=== PATIENT | female | born 1985 | race Caucasian/White ===

== ENCOUNTER → 2019-09-22 14:50 | Outpatient (CLI) | payer OTHER, SELFPAY ==
[2019-09-22 16:01] LABS: Free T4, Direct Thyroxine 0.94 ng/dL (0.78-2.19)
[2019-09-22 16:15] LABS: Thyroid Stimulating Hormone 2.21 uIU/mL (0.47-4.68)
== END ==
PROVIDERS: Referring Provider Obstetrics & Gynecology; Visit Provider Obstetrics & Gynecology
DX: E03.9 Hypothyroidism, unspecified (principal)
CPT/HCPCS: 36415; 84439; 84443

== ENCOUNTER 2020-03-07 11:15 | Outpatient (RCR) | payer OTHER, SELFPAY ==
--- NOTE | 2020-01-05 17:31 | PT.OIE ---
Current Diagnoses Other specified disorders of muscle (01/04/20) Cystocele, unspecified (01/04/20) Rectocele (01/04/20) Pelvic muscle wasting (01/04/20) Past Medical History (Last Updated 11/30/19 @ 18:59 by Jocelyn Carvalho MD) H/O concussion (Acute) Hypothyroidism (Chronic ~2018) Kyphosis (Acute) Lordosis (Acute) Pelvic relaxation (Acute) Reactive depression (situational) (Acute ~2003) Past Surgical History (Last Updated 09/21/19 @ 20:29 by Kia Porras) Anesthesia (Resolved) Clavicle fracture (Acute ~2007) History of tonsillectomy (Acute ~2006) Visit Care Team Role Provider Type Jocelyn Carvalho MD Attending Provider Physician Family Provider Primary Care Provider Referring Provider Specialty: TERRAZZO POLISHER HELPER Address: [address] [place] [address] Email: [email or web address] Physical Therapy Initial Evaluation PT-OP-A Visit Information Start: 01/04/20 14:30 Freq: Status: Active Protocol: Document 01/04/20 14:30 [facility] (Rec: 01/04/20 14:36 [facility] [id number]) Out-Patient Physical Therapy Visit Information Visit Information Visit Type Initial Evaluation Visit Start Time 12:45 Visit Stop Time 13:30 Total Visit Minutes 45 Visit Number 1 Evaluation Information Evaluation Date 01/04/20 PT-OP-B Current Condition Start: 01/04/20 14:30 Freq: Status: Active Protocol: Document 01/04/20 14:30 [facility] (Rec: 01/04/20 14:36 [facility] [id number]) Current Condition History of Current Condition Onset Date 3 months ago with vaginal delivery Current Complaints cystocele and rectocele with bulge in the vaginal wall, pelvic pressure History of Current Condition Lasha is a 34 year old female 1 para 1 who delivered her baby August 13 2019. She had a 36 hour labor with pitocin and vaccumm assisted vaginal delivery. Lasha reports 3 months after childbirth she noticed a bulge in her vagina when showering. She was seen by Dr. Carvalho and sent to PT for pelvic floor strengthening for pelvic relaxation including 2nd-3rd degree cystocele, 2nd degree rectocele, 1st degree uterine prolapse. Treatment Goals Patient/Caregiver Goals Treatment goals include improving pelvic floor strength to decrease pelvic organ prolapse and preventing any further prolapse. PT-OP-I Pelvic Floor Start: 01/04/20 14:30 Freq: Status: Active Protocol: Document 01/04/20 14:38 [facility] (Rec: 01/04/20 14:41 [facility] [id number]) Pelvic Floor Assessment Urine Pelvic Floor Surgery Vaccumm assisted delivery Other Urinary Symptoms pelvic pressure and heavyness after long walks or at the end of the day Bowel Other Bowel Symptoms Feeling of rectal prolapse Bowel Movement Frequency daily bowel movements without straining Pelvic Clock Pelvic Clock 3-6 Atrophy Pelvic Clock 6-9 Atrophy Prolapse Uterine Prolapse Grade 1 Cystocele Grade 2 Rectocele Grade 2 Perineal Descent Resting Present Bearing Present SEMG (uV) Baseline 2.3 10 Second Contraction 7.0 Recruitment Pattern Fair Relaxation Good Holding Fair Stability of Hold Fair SEMG Stability of Rest Good Contraction Ability Voluntary Contraction Weak Voluntary Relaxation Weak Manual Muscle Testing Left 2 Manual Muscle Testing Right 2 Manual Muscle Testing Anterior 2 Manual Muscle Testing Posterior 1 Muscle Endurance (Seconds) 7 PT-OP-Q Treatments Start: 01/04/20 14:30 Freq: Status: Active Protocol: Document 01/04/20 17:28 [facility] (Rec: 01/05/20 17:29 [facility] [id number]) Therapeutic Exercises Supine Exercises 1 Supine Exercise Name pelvic floor 5 second hold time and 10 second relax Side bilateral Reps/Minutes 1-2 sets of 10 reps per day PT-OP-T Assessment and Plan Start: 01/04/20 14:30 Freq: Status: Active Protocol: Document 01/04/20 15:47 [facility] (Rec: 01/05/20 16:00 [facility] [id number]) Physical Therapy Assessment Rehab Potential Rehabilitation Potential Excellent Evaluation Complexity Number of Personal Factors/Comorbidities 0 Number of Body Systems Impaired 1-2 Clinical Presentation at Evaluation Stable Impairments Impairments Activity Tolerance,Pain,Soft Tissue Mobility,Strength Other Impairments pelvic organ prolapse, pelvic heaviness and pressure after long walks Goals 4 Impairment Decreased endurance of the levator ani musculature Short Term Goal (STG) Lasha is able to sustain a pelvic floor contraction for 10 seconds in supine STG Duration 5 weeks [employer] Alarm Superintendent Goal (LTG) Lasha is able to sustain a pelvic floor contraction in standing x 10 seconds for improved support of her pelvic organs. Three Impairment Pelvic organ prolapse, c/o pelvic heavyness especially after a long walk Shelter Goal (LTG) With improved strength of the pelvic floor and education on decreasing downward pressure on the pelvic floor Lasha is able to prevent further prolapse and decrease symptoms of pelvic pressure and heavyness. LTG Duration 8 weeks Two Impairment Decreased strength of the pelvicfloor s/p forceps assisted vaginal delivery [place] Alarm Superintendent Goal (LTG) Lasha is able to improve the strength of her levator ani for improved support of her pelvic organs to 3/5 or better on MMT LTG Duration 8 weeks One Impairment Perineal gapping and decreased ability to draw the perineal body upward/in Short Term Goal (STG) Lasha has improved ability to contract at the perineal body and lift the perineum upward STG Duration 4 weeks Shelter Goal (LTG) There is decreased perineal gapping and improved support to the pelvic floor LTG Duration 8 weeks Assessment Summary Assessment Lasha is a 34 year old female 1 para 1 who is 5 months from a vaccumm assisted vaginal delivery. She reports at 3 months she began noticing a bulge from her vagina while she was in the shower. Lasha notes she rarely has any urinary leakage and has a daily bowel movement. She is able to have intercourse but it is not comfortable at this point. She does complain of increased pelvic pressure after long walks or at the end of the day . With pelvic floor examination today Lasha presents with perineal gapping and decreased ability for the perineal body to elevate with pelvic floor contraction. This downward tension may be contributing to pelvic organ prolapse. Lasha is weak with MMT of the levator ani. Her anterior and lateral corbett tests 2/5 MMT and posterior wall is a 1/5. Lasha tends to substitute with her upper abdominals when attempting a pelvic floor contraction. She notes overall a decreased sensation to palpation in her pelvic floor and it is very difficult for her to isolate her pelvic floor. There is a 2nd degree rectal prolapse and cystocele and 1st degree uterine prolapse noted. EMG biofeedback was used to day to provide neuro re-education for pelvic floor contraction and beginning endurance training. Lasha was educated on lifting up from the perineum. She tolerated treatment well today and is a good candidate for PT. PT will include neuromuscular re- education, endurance training of the levator ani, NMES for improved sensation of the pelvic floor, education on decompression exercises for the pelvic floor. Physical Therapy Plan Frequency and Duration Frequency of Treatment 1x/Week Duration of Treatment 8 Plan of Care Start Date 01/04/20 Plan of Care End Date 02/29/20 Therapeutic Interventions Therapeutic Interventions Home Exercise Program,Manual Therapy,Neuromuscular Re- education,Patient/Caregiver Education,Self-Care/Home Management,Soft Tissue Mobilization,Therapeutic Exercises Modalities Biofeedback Next Visit Focus/Plan Next Note Type Treatment Note Next Visit Plan Continue with EMG biofeedback for pelvic floor muscle strength, NMES for improved sensation of pelvic floor contractions, perineal body mobilizations
--- NOTE | 2020-01-05 17:31 | PT.OPPOC ---
Physical, Occupational & Speech Therapy At [facility] Current Diagnoses Other specified disorders of muscle (01/04/20) Cystocele, unspecified (01/04/20) Rectocele (01/04/20) Pelvic muscle wasting (01/04/20) Visit Care Team Role Provider Type Jocelyn Carvalho MD Attending Provider Physician Family Provider Primary Care Provider Referring Provider Specialty: TECHNICAL SALES ASSOCIATE Address: [address] [place] [address], [id number] Email: [email or web address] Plan Of Care PT-OP-T Assessment and Plan Start: 01/04/20 14:30 Freq: Status: Active Protocol: Document 01/04/20 15:47 [facility] (Rec: 01/05/20 16:00 [facility] [email or web address]) Physical Therapy Assessment Rehab Potential Rehabilitation Potential Excellent Evaluation Complexity Number of Personal Factors/Comorbidities 0 Number of Body Systems Impaired 1-2 Clinical Presentation at Evaluation Stable Impairments Impairments Activity Tolerance,Pain,Soft Tissue Mobility,Strength Other Impairments pelvic organ prolapse, pelvic heaviness and pressure after long walks Goals 4 Impairment Decreased endurance of the levator ani musculature Short Term Goal (STG) Lasha is able to sustain a pelvic floor contraction for 10 seconds in supine STG Duration 5 weeks Halfway Goal (LTG) Lasha is able to sustain a pelvic floor contraction in standing x 10 seconds for improved support of her pelvic organs. Three Impairment Pelvic organ prolapse, c/o pelvic heaviness especially after a long walk Halfway Goal (LTG) With improved strength of the pelvic floor and education on decreasing downward pressure on the pelvic floor Lasha is able to prevent further prolapse and decrease symptoms of pelvic pressure and heaviness. LTG Duration 8 weeks Two Impairment Decreased strength of the pelvic floor s/p forceps assisted vaginal delivery Halfway Goal (LTG) Lasha is able to improve the strength of her levator ani for improved support of her pelvic organs to 3/5 or better on MMT LTG Duration 8 weeks One Impairment Perineal gapping and decreased ability to draw the perineal body upward/in Short Term Goal (STG) Lasha has improved ability to contract at the perineal body and lift the perineum upward STG Duration 4 weeks General Car Yard Supervisor Goal (LTG) There is decreased perineal gapping and improved support to the pelvic floor LTG Duration 8 weeks Assessment Summary Assessment Lasha is a 34 year old female 1 para 1 who is 5 months from a vacuum assisted vaginal delivery. She reports at 3 months she began noticing a bulge from her vagina while she was in the shower. Lasha notes she rarely has any urinary leakage and has a daily bowel movement. She is able to have intercourse but it is not comfortable at this point. She does complain of increased pelvic pressure after long walks or at the end of the day. With pelvic floor examination today Lasha presents with perineal gapping and decreased ability for the perineal body to elevate with pelvic floor contraction. This downward tension may be contributing to pelvic organ prolapse. Lasha is weak with MMT of the levator ani. Her anterior and lateral corbett tests 2/5 MMT and posterior wall is a 1/5. Lasha tends to substitute with her upper abdominals when attempting a pelvic floor contraction. She notes overall a decreased sensation to palpation in her pelvic floor and it is very difficult for her to isolate her pelvic floor. There is a 2nd degree rectal prolapse and cystocele and 1st degree uterine prolapse noted. EMG biofeedback was used to day to provide neuro re-education for pelvic floor contraction and beginning endurance training. Lsaha was educated on lifting up from the perineum. She tolerated treatment well today and is a good candidate for PT. PT will include neuromuscular re- education, endurance training of the levator ani, NMES for improved sensation of the pelvic floor, education on decompression exercises for the pelvic floor. Physical Therapy Plan Frequency and Duration Frequency of Treatment 1x/Week Duration of Treatment 8 Plan of Care Start Date 01/04/20 Plan of Care End Date 02/29/20 Therapeutic Interventions Therapeutic Interventions Home Exercise Program,Manual Therapy,Neuromuscular Re- education,Patient/Caregiver Education,Self-Care/Home Management,Soft Tissue Mobilization,Therapeutic Exercises Modalities Biofeedback Next Visit Focus/Plan Next Note Type Treatment Note Next Visit Plan Continue with EMG biofeedback for pelvic floor muscle strength, NMES for improved sensation of pelvic floor contractions, perineal body mobilizations Plan of Care Dates Plan of Care Start Date 01/04/20 Plan of Care End Date 02/29/20 Electronically Signed by: Lucía Walden, PT 01/05/20 1980 Please Sign and Return: I have reviewed this Plan of Care and certify that the skilled therapy services above are required to meet the patient?s needs. Physician Signature Date Printed Name and Credentials Clinical Instructor Signature Printed Name and Credentials
--- NOTE | 2020-01-11 10:25 | PT.OTN ---
Current Diagnoses Other specified disorders of muscle (01/10/20) Cystocele, unspecified (01/10/20) Rectocele (01/10/20) Pelvic muscle wasting (01/10/20) Physical Therapy Treatment Note PT-OP-A Visit Information Start: 01/04/20 14:30 Freq: Status: Active Protocol: Document 01/10/20 14:51 [facility] (Rec: 01/10/20 15:00 [facility] [id number]) Out-Patient Physical Therapy Visit Information Visit Information Visit Type Treatment Note Visit Start Time 14:40 Visit Stop Time 15:20 Total Visit Minutes 40 Visit Number 2 PT-OP-B Current Condition Start: 01/04/20 14:30 Freq: Status: Active Protocol: Document 01/04/20 14:30 [facility] (Rec: 01/04/20 14:36 [facility] [id number]) Current Condition History of Current Condition Onset Date 3 months ago with vaginal delivery Current Complaints cystocele and rectocele with bulge in the vaginal wall, pelvic pressure History of Current Condition Lasha is a 34 year old female 1 para 1 who delivered her baby August 13 2019. She had a 36 hour labor with pitocin and vaccumm assisted vaginal delivery. Lasha reports 3 months after childbirth she noticed a bulge in her vagina when showering. She was seen by Dr. Carvalho and sent to PT for pelvic floor strengthening for pelvic relaxation including 2nd-3rd degree cystocele, 2nd degree rectocele, 1st degree uterine prolapse. Treatment Goals Patient/Caregiver Goals Treatment goals include improving pelvic floor strength to decrease pelvic organ prolapse and preventing any further prolapse. PT-OP-C Subjective Start: 01/04/20 14:30 Freq: Status: Active Protocol: Document 01/10/20 14:51 [facility] (Rec: 01/10/20 15:00 [facility] [id number]) OP-PT Subjective Patient Comments Patient Comments Lasha reports that it has been hard to find the side corbett of her levator ani, she has been focusing on the rectal region PT-OP-I Pelvic Floor Start: 01/04/20 14:30 Freq: Status: Active Protocol: Document 01/04/20 14:38 [facility] (Rec: 01/04/20 14:41 [facility] [id number]) Pelvic Floor Assessment Urine Pelvic Floor Surgery Vaccumm assisted delivery Other Urinary Symptoms pelvic pressure and heavyness after long walks or at the end of the day Bowel Other Bowel Symptoms Feeling of rectal prolapse Bowel Movement Frequency daily bowel movements without straining Pelvic Clock Pelvic Clock 3-6 Atrophy Pelvic Clock 6-9 Atrophy Prolapse Uterine Prolapse Grade 1 Cystocele Grade 2 Rectocele Grade 2 Perineal Descent Resting Present Bearing Present SEMG (uV) Baseline 2.3 10 Second Contraction 7.0 Recruitment Pattern Fair Relaxation Good Holding Fair Stability of Hold Fair SEMG Stability of Rest Good Contraction Ability Voluntary Contraction Weak Voluntary Relaxation Weak Manual Muscle Testing Left 2 Manual Muscle Testing Right 2 Manual Muscle Testing Anterior 2 Manual Muscle Testing Posterior 1 Muscle Endurance (Seconds) 7 PT-OP-Q Treatments Start: 01/04/20 14:30 Freq: Status: Active Protocol: Document 01/10/20 14:51 [facility] (Rec: 01/10/20 15:00 [facility] [id number]) Therapeutic Exercises Supine Exercises quick contractions of the pelvic floor Supine Exercise Name quick flicks Reps/Minutes 2 seconds on 2 seconds off supine ball squeeze Supine Exercise Name supine ball squeeze Reps/Minutes 2 x 10 reps with pelvic floor contraction 1 Supine Exercise Name Long holds of the pelvic floor 10 second hold time and 10 second relaxation Reps/Minutes 10 reps x 10 second hold time Sidelying Exercises clam shells Sidelying Exercise Name sidelying clam shells Reps/Minutes 2 x 10 Neuro Re-Education Treatment Other Activities neuro stimulation Details NMES with internal vaginal sensor for improved pelvic floor recruitment and Comments With NMES Lasha only feels stimulation on the right side. PT-OP-T Assessment and Plan Start: 01/04/20 14:30 Freq: Status: Active Protocol: Document 01/10/20 14:30 [facility] (Rec: 01/11/20 10:24 [facility] [id number]) Physical Therapy Assessment Assessment Summary Assessment I started Lasha today on NMES for the pelvic floor. She only had sensation in the right posterior wall. She may benefit from a home unit of NMES. I gave her the paper work today for initiating that for home. She did improve on EMG biofeedback today and was able to hold for 10 seconds. Her average work was 9.9 uv with max of 34 uv and resting tone of 0 uv. I added in quick contractions and we started using later hip rotators and adductors for support. Physical Therapy Plan Frequency and Duration Frequency of Treatment 1x/Week Duration of Treatment 8 Plan of Care Start Date 01/04/20 Plan of Care End Date 02/29/20 Therapeutic Interventions Therapeutic Interventions Home Exercise Program,Manual Therapy,Neuromuscular Re- education,Patient/Caregiver Education,Self-Care/Home Management,Soft Tissue Mobilization,Therapeutic Exercises Modalities Biofeedback Next Visit Focus/Plan Next Note Type Treatment Note Next Visit Plan recheck perineal lift next visit, scar tissue mobilizations.
--- NOTE | 2020-02-16 17:48 | PT.OTN ---
Current Diagnoses Other specified disorders of muscle (02/16/20) Cystocele, unspecified (02/16/20) Rectocele (02/16/20) Pelvic muscle wasting (02/16/20) Physical Therapy Treatment Note PT-OP-A Visit Information Start: 01/04/20 14:30 Freq: Status: Active Protocol: Document 02/16/20 10:27 [facility] (Rec: 02/16/20 10:38 [facility] [id number]) Out-Patient Physical Therapy Visit Information Visit Information Visit Type Treatment Note Visit Start Time 10:30 Visit Stop Time 11:15 Total Visit Minutes 45 Visit Number 3 PT-OP-B Current Condition Start: 01/04/20 14:30 Freq: Status: Active Protocol: Document 01/04/20 14:30 [facility] (Rec: 01/04/20 14:36 [facility] [id number]) Current Condition History of Current Condition Onset Date 3 months ago with vaginal delivery Current Complaints cystocele and rectocele with bulge in the vaginal wall, pelvic pressure History of Current Condition Lasha is a 34 year old female 1 para 1 who delivered her baby August 13 2019. She had a 36 hour labor with pitocin and vaccumm assisted vaginal delivery. Lasha reports 3 months after childbirth she noticed a bulge in her vagina when showering. She was seen by Dr. Carvalho and sent to PT for pelvic floor strengthening for pelvic relaxation including 2nd-3rd degree cystocele, 2nd degree rectocele, 1st degree uterine prolapse. Treatment Goals Patient/Caregiver Goals Treatment goals include improving pelvic floor strength to decrease pelvic organ prolapse and preventing any further prolapse. PT-OP-C Subjective Start: 01/04/20 14:30 Freq: Status: Active Protocol: Document 02/16/20 10:27 [facility] (Rec: 02/16/20 10:38 [facility] [id number]) OP-PT Subjective Patient Comments Patient Comments Pt notes she feels like things are tightening up in her pelvic floor. She has been working on the long holds. Lasha reports feeling that she has been able to go on hikes without the feeling of pelvic pressure PT-OP-I Pelvic Floor Start: 01/04/20 14:30 Freq: Status: Active Protocol: Document 01/04/20 14:38 [facility] (Rec: 01/04/20 14:41 [facility] [id number]) Pelvic Floor Assessment Urine Pelvic Floor Surgery Vaccumm assisted delivery Other Urinary Symptoms pelvic pressure and heavyness after long walks or at the end of the day Bowel Other Bowel Symptoms Feeling of rectal prolapse Bowel Movement Frequency daily bowel movements without straining Pelvic Clock Pelvic Clock 3-6 Atrophy Pelvic Clock 6-9 Atrophy Prolapse Uterine Prolapse Grade 1 Cystocele Grade 2 Rectocele Grade 2 Perineal Descent Resting Present Bearing Present SEMG (uV) Baseline 2.3 10 Second Contraction 7.0 Recruitment Pattern Fair Relaxation Good Holding Fair Stability of Hold Fair SEMG Stability of Rest Good Contraction Ability Voluntary Contraction Weak Voluntary Relaxation Weak Manual Muscle Testing Left 2 Manual Muscle Testing Right 2 Manual Muscle Testing Anterior 2 Manual Muscle Testing Posterior 1 Muscle Endurance (Seconds) 7 PT-OP-Q Treatments Start: 01/04/20 14:30 Freq: Status: Active Protocol: Document 02/16/20 11:11 [facility] (Rec: 02/16/20 11:20 [facility] [id number]) Therapeutic Exercises Supine Exercises templates for eccentric control and coordination Supine Exercise Name templates for eccentric control and coordination quick contractions of the pelvic floor Supine Exercise Name quick flicks Reps/Minutes 2 seconds on 2 seconds off 1 Supine Exercise Name Long holds of the pelvic floor 10 second hold time and 10 second relaxation Reps/Minutes 10 reps x 10 second hold time Sidelying Exercises clam shells Sidelying Exercise Name sidelying clam shells Reps/Minutes 30 reps Neuro Re-Education Treatment Other Activities neuro stimulation Details NMES for the pelvic floor Comments 10 minutes PT-OP-T Assessment and Plan Start: 01/04/20 14:30 Freq: Status: Active Protocol: Document 02/16/20 11:11 [facility] (Rec: 02/16/20 11:20 [facility] [id number]) Physical Therapy Assessment Assessment Summary Assessment Lasha is showing improvement with endurance of her pelvic floor and she feels that she is not experiencing the pelvic pressure that she was. I added in eccentric coordination exercises today for her and she tolerated these well. Begin working on the foam roll for her posture and add in dynamic lumbar stabilization Physical Therapy Plan Frequency and Duration Duration of Treatment 8 Plan of Care Start Date 01/04/20 Plan of Care End Date 02/29/20 Next Visit Focus/Plan Next Note Type Treatment Note Next Visit Plan recheck perienum next visit, use foam roll to openup her chest as she notes she feels forward.
--- NOTE | 2020-02-22 14:04 | PT.OPPOC ---
Physical, Occupational & Speech Therapy At [facility] Current Diagnoses Other specified disorders of muscle (02/22/20) Cystocele, unspecified (02/22/20) Rectocele (02/22/20) Pelvic muscle wasting (02/22/20) Visit Care Team Role Provider Type Jocelyn Carvalho MD Attending Provider Physician Family Provider Primary Care Provider Referring Provider Specialty: IMAGING TECH Address: [address] [place] [address], [id number] Email: [email or web address] Plan Of Care PT-OP-T Assessment and Plan Start: 01/04/20 14:30 Freq: Status: Active Protocol: Document 02/22/20 13:58 [facility] (Rec: 02/22/20 14:02 [facility] [id number]) Physical Therapy Assessment Goals 4 Impairment Decreased endurance of the levator ani musculature Short Term Goal (STG) Lasha is able to sustain a pelvic floor contraction for 10 seconds in supine Goal met STG Duration 5 weeks Micropaleontologist Goal (LTG) Lasha is able to sustain a pelvic floor contraction in standing x 10 seconds for improved support of her pelvic organs. Good progress Three Longterm Goal (LTG) With improved strength of the pelvic floor and education on decreasing downward pressure on the pelvic floor Lasha is able to prevent further prolapse and decrease symptoms of pelvic pressure and heavyness. Excellent progress, Lasha has been able to go for walks and hikes without complaints of pelvic heaviness or pressure Two Impairment Decreased strength of the pelvicfloor s/p forceps assisted vaginal delivery Longterm Goal (LTG) Lasha is able to improve the strength of her levator ani for improved support of her pelvic organs to 3/5 or better on MMT Excellent progress One Impairment Perineal gapping and decreased ability to draw the perineal body upward/in Short Term Goal (STG) Lasha has improved ability to contract at the perineal body and lift the perineum upward Excellent progress, improved perineal lift now with contraction STG Duration 4 weeks Micropaleontologist Goal (LTG) There is decreased perineal gapping and improved support to the pelvic floor Good progress LTG Duration 8 weeks Assessment Summary Assessment Lasha is showing improvements with her endurance and strength of the pelvic floor. Pernieum gapping is decreasing now and she has overall decreased s/o pressure from the rectocele. With examination today the rectocele felt more like a grade 1. She is noting that she can hike now without pressure. Lasha would benefit from continued PT working towards more dynamic core stabilization. Physical Therapy Plan Frequency and Duration Duration of Treatment 8 Plan of Care Start Date 02/22/20 Plan of Care End Date 04/25/20 Therapeutic Interventions Therapeutic Interventions Home Exercise Program,Manual Therapy,Neuromuscular Re- education,Patient/Caregiver Education,Self-Care/Home Management,Soft Tissue Mobilization,Therapeutic Exercises Modalities Biofeedback Next Visit Focus/Plan Next Note Type Treatment Note Next Visit Plan return to EMG biofeedback and NMES next visit, work on pelvic floor facilitation in standing, transverse abdominal stabilization, postural stretching with foam roll Plan of Care Dates Plan of Care Start Date 02/22/20 Plan of Care End Date 04/25/20 Electronically Signed by: Lucía Walden, PT 02/22/20 [id number] Please Sign and Return: I have reviewed this Plan of Care and certify that the skilled therapy services above are required to meet the patient?s needs. Physician Signature Date Printed Name and Credentials Clinical Instructor Signature Printed Name and Credentials
--- NOTE | 2020-02-22 14:09 | PT.OTN ---
Current Diagnoses Other specified disorders of muscle (02/22/20) Cystocele, unspecified (02/22/20) Rectocele (02/22/20) Pelvic muscle wasting (02/22/20) Physical Therapy Treatment Note PT-OP-A Visit Information Start: 01/04/20 14:30 Freq: Status: Active Protocol: Document 02/22/20 11:15 [facility] (Rec: 02/22/20 11:45 [facility] [id number]) Out-Patient Physical Therapy Visit Information Visit Information Visit Type Treatment Note Visit Start Time 11:30 Visit Stop Time 12:00 Total Visit Minutes 30 Visit Number 4 PT-OP-B Current Condition Start: 01/04/20 14:30 Freq: Status: Active Protocol: Document 01/04/20 14:30 [facility] (Rec: 01/04/20 14:36 [facility] [id number]) Current Condition History of Current Condition Onset Date 3 months ago with vaginal delivery Current Complaints cystocele and rectocele with bulge in the vaginal wall, pelvic pressure History of Current Condition Lasha is a 34 year old female 1 para 1 who delivered her baby August 13 2019. She had a 36 hour labor with pitocin and vaccumm assisted vaginal delivery. Lasha reports 3 months after childbirth she noticed a bulge in her vagina when showering. She was seen by Dr. Carvalho and sent to PT for pelvic floor strengthening for pelvic relaxation including 2nd-3rd degree cystocele, 2nd degree rectocele, 1st degree uterine prolapse. Treatment Goals Patient/Caregiver Goals Treatment goals include improving pelvic floor strength to decrease pelvic organ prolapse and preventing any further prolapse. PT-OP-C Subjective Start: 01/04/20 14:30 Freq: Status: Active Protocol: Document 02/22/20 11:15 [facility] (Rec: 02/22/20 11:45 [facility] [id number]) OP-PT Subjective Patient Comments Patient Comments Lasha notes she continues to do her exercises PT-OP-I Pelvic Floor Start: 01/04/20 14:30 Freq: Status: Active Protocol: Document 01/04/20 14:38 [facility] (Rec: 01/04/20 14:41 [facility] [id number]) Pelvic Floor Assessment Urine Pelvic Floor Surgery Vaccumm assisted delivery Other Urinary Symptoms pelvic pressure and heavyness after long walks or at the end of the day Bowel Other Bowel Symptoms Feeling of rectal prolapse Bowel Movement Frequency daily bowel movements without straining Pelvic Clock Pelvic Clock 3-6 Atrophy Pelvic Clock 6-9 Atrophy Prolapse Uterine Prolapse Grade 1 Cystocele Grade 2 Rectocele Grade 2 Perineal Descent Resting Present Bearing Present SEMG (uV) Baseline 2.3 10 Second Contraction 7.0 Recruitment Pattern Fair Relaxation Good Holding Fair Stability of Hold Fair SEMG Stability of Rest Good Contraction Ability Voluntary Contraction Weak Voluntary Relaxation Weak Manual Muscle Testing Left 2 Manual Muscle Testing Right 2 Manual Muscle Testing Anterior 2 Manual Muscle Testing Posterior 1 Muscle Endurance (Seconds) 7 PT-OP-Q Treatments Start: 01/04/20 14:30 Freq: Status: Active Protocol: Document 02/22/20 13:56 [facility] (Rec: 02/22/20 13:57 [facility] [id number]) Therapeutic Exercises Other Exercises foam roll stretches Other Exercise Name foam roll both vertical and horizontal Side bilateral Comments snow angels, 90/90 arm slides, T exercise, opp arm lifts, bilateral flexion Manual Therapy Treatment Manual Techniques 1 Type manual reassessment of the perineum and levator ani Body Location pelvic floor and perineum Body Position Hooklying PT-OP-T Assessment and Plan Start: 01/04/20 14:30 Freq: Status: Active Protocol: Document 02/22/20 13:58 [facility] (Rec: 02/22/20 14:02 [facility] [id number]) Physical Therapy Assessment Goals 4 Impairment Decreased endurance of the levator ani musculature Short Term Goal (STG) Lasha is able to sustain a pelvic floor contraction for 10 seconds in supine Goal met STG Duration 5 weeks Alf Goal (LTG) Lasha is able to sustain a pelvic floor contraction in standing x 10 seconds for improved support of her pelvic organs. Good progress Three Biological Science Technician Fish Goal (LTG) With improved strength of the pelvic floor and education on decreasing downward pressure on the pelvic floor Lasha is able to prevent further prolapse and decrease symptoms of pelvic pressure and heavyness. Excellent progress, Lasha has been able to go for walks and hikes without complaints of pelvic heaviness or pressure Two Impairment Decreased strength of the pelvicfloor s/p forceps assisted vaginal delivery Alf Goal (LTG) Lasha is able to improve the strength of her levator ani for improved support of her pelvic organs to 3/5 or better on MMT Excellent progress One Impairment Perineal gapping and decreased ability to draw the perineal body upward/in Short Term Goal (STG) Lasha has improved ability to contract at the perineal body and lift the perineum upward Excellent progress, improved perineal lift now with contraction STG Duration 4 weeks Biological Science Technician Fish Goal (LTG) There is decreased perineal gapping and improved support to the pelvic floor Good progress LTG Duration 8 weeks Assessment Summary Assessment Lasha is showing improvements with her endurance and strength of the pelvic floor. Pernieum gapping is decreasing now and she has overall decreased s/o pressure from the rectocele. With examination today the rectocele felt more like a grade 1. She is noting that she can hike now without pressure. Lasha would benefit from continued PT working towards more dynamic core stabilization. Physical Therapy Plan Frequency and Duration Duration of Treatment 8 Plan of Care Start Date 02/22/20 Plan of Care End Date 04/25/20 Therapeutic Interventions Therapeutic Interventions Home Exercise Program,Manual Therapy,Neuromuscular Re- education,Patient/Caregiver Education,Self-Care/Home Management,Soft Tissue Mobilization,Therapeutic Exercises Modalities Biofeedback Next Visit Focus/Plan Next Note Type Treatment Note Next Visit Plan return to EMG biofeedback and NMES next visit, work on pelvic floor facilitation in standing, transverse abdominal stabilization, postural stretching with foam roll
--- NOTE | 2020-03-08 13:19 | PT.OTN ---
Current Diagnoses Other specified disorders of muscle (03/07/20) Cystocele, unspecified (03/07/20) Rectocele (03/07/20) Pelvic muscle wasting (03/07/20) Physical Therapy Treatment Note PT-OP-A Visit Information Start: 01/04/20 14:30 Freq: Status: Active Protocol: Document 03/07/20 11:24 [facility] (Rec: 03/07/20 11:28 [facility] [id number]) Out-Patient Physical Therapy Visit Information Visit Information Visit Type Treatment Note Visit Start Time 11:20 Visit Stop Time 12:00 Total Visit Minutes 40 Visit Number 5 PT-OP-B Current Condition Start: 01/04/20 14:30 Freq: Status: Active Protocol: Document 01/04/20 14:30 [facility] (Rec: 01/04/20 14:36 [facility] [id number]) Current Condition History of Current Condition Onset Date 3 months ago with vaginal delivery Current Complaints cystocele and rectocele with bulge in the vaginal wall, pelvic pressure History of Current Condition Lasha is a 34 year old female 1 para 1 who delivered her baby August 13 2019. She had a 36 hour labor with pitocin and vaccumm assisted vaginal delivery. Lasha reports 3 months after childbirth she noticed a bulge in her vagina when showering. She was seen by Dr. Carvalho and sent to PT for pelvic floor strengthening for pelvic relaxation including 2nd-3rd degree cystocele, 2nd degree rectocele, 1st degree uterine prolapse. Treatment Goals Patient/Caregiver Goals Treatment goals include improving pelvic floor strength to decrease pelvic organ prolapse and preventing any further prolapse. PT-OP-C Subjective Start: 01/04/20 14:30 Freq: Status: Active Protocol: Document 03/07/20 11:24 [facility] (Rec: 03/07/20 11:28 [facility] [id number]) OP-PT Subjective Patient Comments Patient Comments has been working on a foam roll more for posture which has felt good. She notes she has felt a little more urgency to void. PT-OP-I Pelvic Floor Start: 01/04/20 14:30 Freq: Status: Active Protocol: Document 01/04/20 14:38 [facility] (Rec: 01/04/20 14:41 [facility] [id number]) Pelvic Floor Assessment Urine Pelvic Floor Surgery Vaccumm assisted delivery Other Urinary Symptoms pelvic pressure and heavyness after long walks or at the end of the day Bowel Other Bowel Symptoms Feeling of rectal prolapse Bowel Movement Frequency daily bowel movements without straining Pelvic Clock Pelvic Clock 3-6 Atrophy Pelvic Clock 6-9 Atrophy Prolapse Uterine Prolapse Grade 1 Cystocele Grade 2 Rectocele Grade 2 Perineal Descent Resting Present Bearing Present SEMG (uV) Baseline 2.3 10 Second Contraction 7.0 Recruitment Pattern Fair Relaxation Good Holding Fair Stability of Hold Fair SEMG Stability of Rest Good Contraction Ability Voluntary Contraction Weak Voluntary Relaxation Weak Manual Muscle Testing Left 2 Manual Muscle Testing Right 2 Manual Muscle Testing Anterior 2 Manual Muscle Testing Posterior 1 Muscle Endurance (Seconds) 7 PT-OP-Q Treatments Start: 01/04/20 14:30 Freq: Status: Active Protocol: Document 03/07/20 13:12 [facility] (Rec: 03/08/20 13:19 [facility] [id number]) Therapeutic Exercises Supine Exercises templates for eccentric control and coordination Supine Exercise Name templates for eccentric control and coordination quick contractions of the pelvic floor Supine Exercise Name quick flicks Reps/Minutes 2 seconds on 2 seconds off 1 Supine Exercise Name Long holds of the pelvic floor 10 second hold time and 10 second relaxation Reps/Minutes 10 reps x 10 second hold time Standing Exercises standing pelvic floor facilitation Standing Exercise Name standing pelvic floor facilitation Reps/Minutes 5 second hold time x 10 reps Neuro Re-Education Treatment Other Activities neuro stimulation Details NMES for the pelvic floor Comments 10 minutes Self-Care/Home Management Treatment Education Patient Education Home Exercise Program Other Education pt educated in urge deference technique for urgency and frequency. I also reviewed bladder irritants to decrease urgency PT-OP-T Assessment and Plan Start: 01/04/20 14:30 Freq: Status: Active Protocol: Document 03/07/20 13:12 [facility] (Rec: 03/08/20 13:19 [facility] [id number]) Physical Therapy Assessment Assessment Summary Assessment bladder irritants as well as urge deference technique was taught today. PT doing well with long holds of the pelvic floor and we began standing today.. Re check pelvic floor strength manualy and progress towards dynamic stabilization next visit Physical Therapy Plan Frequency and Duration Frequency of Treatment 1 xm/week Duration of Treatment 8 Plan of Care Start Date 02/22/20 Plan of Care End Date 04/25/20 Next Visit Focus/Plan Next Note Type Treatment Note Next Visit Plan recheck pelvic floor next visit and begin working towards dynamic stabilization
--- NOTE | 2020-06-13 10:09 | PT.OPDS ---
Current Diagnoses Other specified disorders of muscle (03/07/20) Cystocele, unspecified (03/07/20) Rectocele (03/07/20) Pelvic muscle wasting (03/07/20) Visit Care Team Role Provider Type Jocelyn Carvalho MD Attending Provider Physician Family Provider Primary Care Provider Referring Provider Specialty: Gynecology TIME LOCK EXPERT Obstetrics Address: [address] [place] [address], [id number] Email: [email or web address] Visit Number Visit Number 5 Discharge Summary PT-OP-B Current Condition Start: 01/04/20 14:30 Freq: Status: Active Protocol: Document 01/04/20 14:30 [facility] (Rec: 01/04/20 14:36 [facility] [id number]) Current Condition History of Current Condition Onset Date 3 months ago with vaginal delivery Current Complaints cystocele and rectocele with bulge in the vaginal wall, pelvic pressure History of Current Condition Lasha is a 34 year old female 1 para 1 who delivered her baby August 13 2019. She had a 36 hour labor with pitocin and vaccumm assisted vaginal delivery. Lasha reports 3 months after childbirth she noticed a bulge in her vagina when showering. She was seen by Dr. Carvalho and sent to PT for pelvic floor strengthening for pelvic relaxation including 2nd-3rd degree cystocele, 2nd degree rectocele, 1st degree uterine prolapse. Treatment Goals Patient/Caregiver Goals Treatment goals include improving pelvic floor strength to decrease pelvic organ prolapse and preventing any further prolapse. PT-OP-C Subjective Start: 01/04/20 14:30 Freq: Status: Active Protocol: Document 03/07/20 11:24 [facility] (Rec: 03/07/20 11:28 [facility] [id number]) OP-PT Subjective Patient Comments Patient Comments has been working on a foam roll more for posture which has felt good. She notes she has felt a little more urgency to void. PT-OP-I Pelvic Floor Start: 01/04/20 14:30 Freq: Status: Active Protocol: Document 01/04/20 14:38 [facility] (Rec: 01/04/20 14:41 [facility] [id number]) Pelvic Floor Assessment Urine Pelvic Floor Surgery Vaccumm assisted delivery Other Urinary Symptoms pelvic pressure and heaviness after long walks or at the end of the day Bowel Other Bowel Symptoms Feeling of rectal prolapse Bowel Movement Frequency daily bowel movements without straining Pelvic Clock Pelvic Clock 3-6 Atrophy Pelvic Clock 6-9 Atrophy Prolapse Uterine Prolapse Grade 1 Cystocele Grade 2 Rectocele Grade 2 Perineal Descent Resting Present Bearing Present SEMG (uV) Baseline 2.3 10 Second Contraction 7.0 Recruitment Pattern Fair Relaxation Good Holding Fair Stability of Hold Fair SEMG Stability of Rest Good Contraction Ability Voluntary Contraction Weak Voluntary Relaxation Weak Manual Muscle Testing Left 2 Manual Muscle Testing Right 2 Manual Muscle Testing Anterior 2 Manual Muscle Testing Posterior 1 Muscle Endurance (Seconds) 7 PT-OP-T Assessment and Plan Start: 01/04/20 14:30 Freq: Status: Active Protocol: Document 06/13/20 10:08 [facility] (Rec: 06/13/20 10:09 [facility] [id number]) Physical Therapy Assessment Assessment Summary Assessment Lasha has not been seen since March 2020. She was making good progress and had shown good strength with both endurance and strength of her pelvic floor. At this time she will be dishcarged to a [facility] Physical Therapy Plan Discharge Physical Therapy Discharge Reasons No Longer Attending PT
== END 2020-06-18 11:26 ==
LOC: PHYS 11:15
PROVIDERS: Family Provider Obstetrics & Gynecology; PCP Obstetrics & Gynecology; Referring Provider Obstetrics & Gynecology; Visit Provider Obstetrics & Gynecology
DX: M62.89 Other specified disorders of muscle (principal); N81.6 Rectocele; N81.10 Cystocele, unspecified; N81.84 Pelvic muscle wasting
CPT/HCPCS: 97110; 97112; 97140; 97161; 97535